=== PATIENT | female | born 1945 | race Caucasian/White ===

== ENCOUNTER 2018-02-07 15:04 | Emergency (ER) | payer MEDICARE ==
[~2018-02-07] VITALS: Ht 165.1 cm; Wt 83.0 kg
[2018-02-07 15:15] VITALS: BP 103/70
[2018-02-07] MEDS ORDERED: SULF1TAB49 PO (16:24)
== END 2018-02-07 16:41 | disposition home or self-care (01) ==
LOC: ER 15:06
DX: L03.115 Cellulitis of right lower limb (principal); T81.30XA Disruption of wound, unspecified, initial encounter; I73.89 Other specified peripheral vascular diseases; Z79.01 Long term (current) use of anticoagulants; Y92.9 Unspecified place or not applicable
CPT/HCPCS: 76881; 99284

== ENCOUNTER 2018-02-25 12:12 | Inpatient (IN) | payer MEDICARE | END 2018-03-14 12:30 | LOC: ER 12:12 → SUR 3N 03-06 15:06 → PACU 03-11 15:00 → SUR 3N 03-11 17:27 → ED HOLD 12:52 → SUR 3N 15:20 → ICU 2S 02-26 17:40 | PROC: 3E05317 Introduction of Other Thrombolytic into Peripheral Artery, Percutaneous Approach (ICD-10-PCS; principal; 2018-03-01 13:32) | PROC: B41G0ZZ Fluoroscopy of Left Lower Extremity Arteries using High Osmolar Contrast (ICD-10-PCS; 2018-03-01 13:32) | PROC: 041 Lower Arteries, Bypass (ICD-10-PCS; 2018-03-01 13:32) | PROC: 041 Lower Arteries, Bypass (ICD-10-PCS; 2018-03-01 13:32) | PROC: 04CK0ZZ Extirpation of Matter from Right Femoral Artery, Open Approach (ICD-10-PCS; 2018-03-01 13:32) | PROC: 047K0ZZ Dilation of Right Femoral Artery, Open Approach (ICD-10-PCS; 2018-03-01 13:32) | PROC: 0YJ Anatomical Regions, Lower Extremities, Inspection (ICD-10-PCS; 2018-03-01 13:32) | PROC: 2W1QX6Z Compression of Right Lower Leg using Pressure Dressing (ICD-10-PCS; 2018-03-01 13:32) | PROC: 0YQH0ZZ Repair Right Lower Leg, Open Approach (ICD-10-PCS; 2018-03-01 13:32) | DX: T82.898A Other specified complication of vascular prosthetic devices, implants and grafts, initial encounter (principal); I70.92 Chronic total occlusion of artery of the extremities; L76.22 Postprocedural hemorrhage of skin and subcutaneous tissue following other procedure; I10 Essential (primary) hypertension; E78.5 Hyperlipidemia, unspecified; E11.9 Type 2 diabetes mellitus without complications; Y83.2 Surgical operation with anastomosis, bypass or graft as the cause of abnormal reaction of the patient, or of later complication, without mention of misadventure at the time of the procedure; I12.9 Hypertensive chronic kidney disease with stage 1 through stage 4 chronic kidney disease, or unspecified chronic kidney disease; E11.22 Type 2 diabetes mellitus with diabetic chronic kidney disease; N18.9 Chronic kidney disease, unspecified ==

== ENCOUNTER 2018-03-21 09:13 | Day surgery (SDC) | payer MEDICARE ==
[2018-03-21 09:00] VITALS: BP 115/50
[~2018-03-21 09:13] MED LIST: AMLO2.5T2 PO; APIX5TAB3 PO; ATOR40TA PO; CLOP75TA15 PO; GABA-530 PO; HYDR-4353 PO; LINA5TAB4 PO; METF500T PO; lopressor PO
[2018-03-21 10:38] VITALS: BP 122/58
[2018-03-21 10:53] VITALS: BP 115/52
[2018-03-21 11:53] VITALS: BP 98/62
[2018-03-21 12:34] VITALS: BP 122/62
--- NOTE | 2018-03-21 13:00 | NUR ---
PATIENT RECIEVED ONE UNIT OF PRBC. H & H DONE PER LAB PROTOCAL. HGB 8.3/HCT 24.9 [employer] [address] DR. COATES WITH RESULTS. ONLY ONE UNIT TO BE TRANSFUSED PER RECENT LAB RESULTS AND LAB PROTOCAL. PATIENT TO BE D/JEROME BACK TO [facility] AND TRANSPORTED BY PRIVATE VEHICLE TO [facility]. REPORT CALLED TO RN AT [facility].
[2018-03-21 13:02] LABS: HEMATOCRIT 24.9 % (35.0-45.0); HEMOGLOBIN 8.3 g/dl (12.0-16.0); MEAN CORPUSCULAR HEMOGLOBIN 30.1 PG (27.0-31.0); MEAN CORPUSCULAR HGB CONC 33.5 g/dL (33.0-36.5); MEAN CORPUSCULAR VOLUME 89.8 FL (78-98); MEAN PLATELET VOLUME 8.8 FL (7.4-10.4); PLATELET COUNT 283 X10'3 (140-440); RED BLOOD COUNT 2.77 X10'6 (4.20-5.60); RED CELL DISTRIBUTION WIDTH 14.1 % (11.5-14.5); WHITE BLOOD COUNT 7.4 X10'3 (4.5-11.0)
[2018-03-21 14:00] VITALS: BP 114/58
== END 2018-03-21 14:00 ==
LOC: SSTAY O 09:13
PROVIDERS: ATTEND Internal Medicine
DX: D64.9 Anemia, unspecified (principal); I10 Essential (primary) hypertension; E11.9 Type 2 diabetes mellitus without complications; Z86.14 Personal history of Methicillin resistant Staphylococcus aureus infection; Z89.421 Acquired absence of other right toe(s); Z85.820 Personal history of malignant melanoma of skin; Z95.828 Presence of other vascular implants and grafts; Z86.79 Personal history of other diseases of the circulatory system; Z79.891 Long term (current) use of opiate analgesic; Z79.01 Long term (current) use of anticoagulants; Z79.84 Long term (current) use of oral hypoglycemic drugs; Z79.899 Other long term (current) drug therapy; Z98.890 Other specified postprocedural states
CPT/HCPCS: 36415; 36430; 85027; 86885; 86900; 86901; 86920; P9016

== ENCOUNTER 2018-04-20 19:17 | Inpatient (IN) | payer MEDICARE | END 2018-05-22 18:00 | LOC: ED HOLD 04-21 00:10 → SUR 3N 04-23 15:28 → CICU 2S 05-01 06:38 → SUR 3N 05-13 13:50 → ER 19:17 → SUR 3N 05-17 17:20 → PAS IN 04-24 18:49 → ICU 2S 04-24 22:42 | PROC: 041K0ZL Bypass Right Femoral Artery to Popliteal Artery, Open Approach (ICD-10-PCS; principal; 2018-04-24 19:46) | PROC: 04CK0ZZ Extirpation of Matter from Right Femoral Artery, Open Approach (ICD-10-PCS; 2018-04-24 19:46) | PROC: 0JCL0ZZ Extirpation of Matter from Right Upper Leg Subcutaneous Tissue and Fascia, Open Approach (ICD-10-PCS; 2018-04-24 19:46) | PROC: B41F0ZZ Fluoroscopy of Right Lower Extremity Arteries using High Osmolar Contrast (ICD-10-PCS; 2018-04-24 19:46) | DX: T82.7XXA Infection and inflammatory reaction due to other cardiac and vascular devices, implants and grafts, initial encounter (principal); A41.9 Sepsis, unspecified organism; I21.A1 Myocardial infarction type 2; J96.90 Respiratory failure, unspecified, unspecified whether with hypoxia or hypercapnia; E87.1 Hypo-osmolality and hyponatremia; L03.115 Cellulitis of right lower limb; L02.415 Cutaneous abscess of right lower limb; N17.9 Acute kidney failure, unspecified; I70.209 Unspecified atherosclerosis of native arteries of extremities, unspecified extremity; E11.51 Type 2 diabetes mellitus with diabetic peripheral angiopathy without gangrene; N18.9 Chronic kidney disease, unspecified; I12.9 Hypertensive chronic kidney disease with stage 1 through stage 4 chronic kidney disease, or unspecified chronic kidney disease; E11.22 Type 2 diabetes mellitus with diabetic chronic kidney disease; D64.9 Anemia, unspecified ==

== ENCOUNTER 2018-05-30 10:06 | Emergency (ER) | payer MEDICARE ==
[~2018-05-30] VITALS: Ht 165.1 cm; Wt 95.0 kg
[~2018-05-30 10:06] MED LIST changes: +ASPI-1 PO; +CEFT2VIA13 IV; +FURO-150 PO; +INSU100V11 SQ; +IRON150C13 PO; +LANTUS SQ; -LINA5TAB4 PO; +MAGN64TA10 PO; -METF500T PO; +METR500T PO; +POTA10TA10 PO
[2018-05-30 10:36] VITALS: BP 141/72
[2018-05-30] MEDS ORDERED: LORazepam 1 MG tablet PO ONE (11:05)
[2018-05-30 12:10] LABS: BASOPHILS % (AUTO) 0.3 % (0-1); EOSINOPHILS # (AUTO) 0.5 X10'3 (0-0.9); EOSINOPHILS % (AUTO) 6.1 % (0-6); HEMATOCRIT 30.5 % (35.0-45.0); HEMOGLOBIN 9.8 g/dl (12.0-16.0); MEAN CORPUSCULAR HEMOGLOBIN 29.4 PG (27.0-31.0); MEAN CORPUSCULAR HGB CONC 32.1 g/dL (33.0-36.5); MEAN CORPUSCULAR VOLUME 91.6 FL (78-98); MEAN PLATELET VOLUME 8.5 FL (7.4-10.4); MONOCYTES # (AUTO) 0.6 X10'3 (0-0.9); MONOCYTES % (AUTO) 7.3 % (2-12); NEUTROPHILS # (AUTO) 6.1 X10'3 (1.8-7.7); NEUTROPHILS % (AUTO) 74.3 % (42-75); PLATELET COUNT 334 X10'3 (140-440); RED BLOOD COUNT 3.33 X10'6 (4.20-5.60); RED CELL DISTRIBUTION WIDTH 21.3 % (11.5-14.5); WHITE BLOOD COUNT 8.2 X10'3 (4.5-11.0)
[2018-05-30 12:18] LABS: INR 1.3 INR; PROTHROMBIN TIME 13.1 SECONDS (9.0-12.0)
[2018-05-30 12:21] LABS: ALBUMIN 1.8 G/DL (3.4-5.0); ALBUMIN/GLOBULIN RATIO 0.4 (1.1-1.5); ALKALINE PHOSPHATASE 59 IU/L (46-116); ANION GAP 6 (8-16); ASPARTATE AMINO TRANSFERASE 16 U/L (10-37); BILIRUBIN,TOTAL 0.2 MG/DL (0.1-1.0); BLOOD UREA NITROGEN 28 MG/DL (7-18); BUN/CREATININE RATIO 13.1 (6.6-38.0); CALCIUM 8.9 MG/DL (8.5-10.1); CHLORIDE 108 MMOL/L (99-107); CREATININE 2.13 MG/DL (0.40-0.90); GLUCOSE 214 MG/DL (70-104); POTASSIUM 4.9 MMOL/L (3.5-5.1); SODIUM 137 MMOL/L (135-145); TOTAL CARBON DIOXIDE 23.3 MMOL/L (24-32); TOTAL PROTEIN 6.8 G/DL (6.4-8.2); eGFR 23 ML/MIN
[2018-05-30 12:30] LABS: LIPASE 75 U/L (73-393); MAGNESIUM 1.3 MG/DL (1.5-2.4)
[2018-05-30 12:33] LABS: ALANINE AMINOTRANSFERASE < 6 U/L (12-78)
[2018-05-30] MEDS ORDERED: FURO-149 PO (13:09)
[2018-05-30] MEDS ORDERED: furosemide 10 MG/1 ML 10ml inj IV ONE (13:10)
[2018-05-30 13:20] LABS: ANISOCYTOSIS 3+; PLATELET ESTIMATE NORMAL
[2018-05-30] MEDS ORDERED: SYN0.088T PO (15:32)
[2018-05-30] MEDS ORDERED: furosemide 20MG tablet PO ONE (15:40)
== END 2018-05-30 19:21 | disposition home or self-care (01) ==
LOC: ER 10:06
DX: R60.1 Generalized edema (principal); E03.9 Hypothyroidism, unspecified; E78.00 Pure hypercholesterolemia, unspecified; E11.22 Type 2 diabetes mellitus with diabetic chronic kidney disease; I12.9 Hypertensive chronic kidney disease with stage 1 through stage 4 chronic kidney disease, or unspecified chronic kidney disease; N18.9 Chronic kidney disease, unspecified; Z98.890 Other specified postprocedural states; Z79.01 Long term (current) use of anticoagulants; Z79.82 Long term (current) use of aspirin; Z79.4 Long term (current) use of insulin; Z79.899 Other long term (current) drug therapy
CPT/HCPCS: 36415; 71045; 74176; 80053; 83690; 83735; 83880; 84439; 84443; 85025; 85610; 93005; 96374; 99284; J1940

== ENCOUNTER 2018-06-06 07:09 | Emergency (ER) | payer MEDICARE ==
[~2018-06-06] VITALS: Ht 175.3 cm; Wt 113.6 kg
[~2018-06-06 07:09] MED LIST changes: -CEFT2VIA13 IV; +FURO-149 PO; +SYN0.088T PO
[2018-06-06 08:45] LABS: CLARITY,URINE CLOUDY (Clear); COLOR,URINE YELLOW (Yellow); GLUCOSE, URINE NEGATIVE (Neg); KETONES,URINE NEGATIVE (Neg); LEUKOCYTE ESTERASE ,URINE LARGE (Neg); NITRITES, URINE NEGATIVE (Neg); OCCULT BLOOD,URINE MODERATE (Neg); PH,URINE 6.5 (4.8-8.0); PROTEIN,URINE 30 mg/dl (Neg); UA COLLECTION TYPE FOLEY CATH; UROBILINOGEN,URINE 0.2 E.U/dL (0.2-1.0)
[2018-06-06 08:54] LABS: BACTERIA,URINE 2+ /HPF (Neg); HYALINE CASTS 0-3 /LPF (NEGATIVE); SQUAMOUS EPITHELIAL CELL,UR FEW /LPF (FEW); WBC CLUMPS,URINE MANY /HPF (NEGATIVE); WBC,URINE 50-100 /HPF (0-4)
--- NOTE | 2018-06-06 09:38 | NUR ---
turned pt on right side, gave water
[2018-06-06 09:41] LABS: BASOPHILS % (AUTO) 0.6 % (0-1); EOSINOPHILS # (AUTO) 0.3 X10'3 (0-0.9); HEMATOCRIT 27.1 % (35.0-45.0); HEMOGLOBIN 8.6 g/dl (12.0-16.0); LYMPHOCYTES # (AUTO) 1.1 X10'3 (1.1-4.8); LYMPHOCYTES % (AUTO) 17.6 % (21-51); MEAN CORPUSCULAR HEMOGLOBIN 29.5 PG (27.0-31.0); MEAN CORPUSCULAR HGB CONC 31.9 g/dL (33.0-36.5); MEAN CORPUSCULAR VOLUME 92.3 FL (78-98); MEAN PLATELET VOLUME 8.9 FL (7.4-10.4); MONOCYTES # (AUTO) 0.6 X10'3 (0-0.9); NEUTROPHILS # (AUTO) 4.4 X10'3 (1.8-7.7); NEUTROPHILS % (AUTO) 68.8 % (42-75); PLATELET COUNT 247 X10'3 (140-440); RED BLOOD COUNT 2.93 X10'6 (4.20-5.60); RED CELL DISTRIBUTION WIDTH 19.5 % (11.5-14.5); WHITE BLOOD COUNT 6.4 X10'3 (4.5-11.0)
[2018-06-06 09:52] LABS: ANISOCYTOSIS 2+; PLATELET ESTIMATE NORMAL
[2018-06-06 09:53] LABS: POLYCHROMASIA FEW
[2018-06-06 10:06] LABS: GLUCOSE 166 MG/DL (70-104); POTASSIUM 4.2 MMOL/L (3.5-5.1); SODIUM 136 MMOL/L (135-145)
[2018-06-06 10:07] LABS: ALANINE AMINOTRANSFERASE 11 U/L (12-78); ALBUMIN 1.9 G/DL (3.4-5.0); ALBUMIN/GLOBULIN RATIO 0.4 (1.1-1.5); ALKALINE PHOSPHATASE 70 IU/L (46-116); ANION GAP 6 (8-16); ASPARTATE AMINO TRANSFERASE 14 U/L (10-37); BILIRUBIN,TOTAL 0.2 MG/DL (0.1-1.0); BLOOD UREA NITROGEN 43 MG/DL (7-18); BUN/CREATININE RATIO 18.1 (6.6-38.0); CALCIUM 8.7 MG/DL (8.5-10.1); CHLORIDE 104 MMOL/L (99-107); CREATININE 2.38 MG/DL (0.40-0.90); TOTAL CARBON DIOXIDE 26.1 MMOL/L (24-32); TOTAL PROTEIN 7.2 G/DL (6.4-8.2); eGFR 20 ML/MIN
[2018-06-06] MEDS ORDERED: AMOX-580 PO (10:37)
--- NOTE | 2018-06-06 11:02 | NUR ---
krzysztof Oseguera [phone] spoke to [facility] to give report and let them know pt is on her way back to them at [phone]
[2018-06-06 11:25] VITALS: BP 117/63
== END 2018-06-06 11:40 | disposition home or self-care (01) ==
LOC: ER 07:09
DX: N39.0 Urinary tract infection, site not specified (principal); E78.00 Pure hypercholesterolemia, unspecified; I12.9 Hypertensive chronic kidney disease with stage 1 through stage 4 chronic kidney disease, or unspecified chronic kidney disease; E11.22 Type 2 diabetes mellitus with diabetic chronic kidney disease; N18.9 Chronic kidney disease, unspecified; Z79.4 Long term (current) use of insulin; Z79.82 Long term (current) use of aspirin
CPT/HCPCS: 36415; 80053; 81001; 82140; 85025; 87077; 87088; 87186; 93005; 99284